=== PATIENT | female | born 1975 | race Caucasian/White ===

== ENCOUNTER 2017-09-19 01:46 | Emergency (ER) | payer MEDICAID ==
[~2017-09-19] VITALS: Ht 170.2 cm; Wt 73.5 kg
[~2017-09-19 01:46] MED LIST: ACET500C5 PO; IBUP-727 PO; MECL25TA2 PO; NAPR-260 PO; ZOF8 PO
[2017-09-19 01:49] VITALS: Ht 170.2 cm; Wt 73.5 kg
[2017-09-19] MEDS ORDERED: ACETAMINOPHEN 500 MG TAB PO STA (03:44)
--- NOTE | 2017-09-19 04:01 | ERD ---
ER Documentation Chief Complaint Chief Complaint C/O STABBING TO LEFT EAR RADIATING TO HEART. +DIZZINESS HPI 42-year-old female presents here to emergency department for multiple complaints. Patient's been having these on and off numbness and tingling, sharp pains, muscle twitching all over the body. Patient started to have left ear pain that radiated to the left chest area. Patient describes the pain as sharp pain, 6/10 scale, not better or worse with anything. Patient also complains of headache throbbing pain, succession scale, not better or worse with anything. Patient denies any fever chills. Patient denies any dizzy on exertion or dizzy lying down. Patient feels and starting in her head. Patient feels twitching all over the body. ROS All systems reviewed and are negative except as per history of present illness. Medications Home Meds Active Scripts Acetaminophen* (Tylophen*) 500 Mg Capsule, 1 CAP PO Q6H Y for PAIN AND OR ELEVATED TEMP, #20 CAP Prov:SHENA GOMEZ MD 05/10/16 Ondansetron Hcl* (Zofran* ODT) 8 mg -ODT Tab.disper, 8 MG PO Q6 Y for NAUSEA AND /OR VOMITING, #10 TAB Prov:SHENA GOMEZ MD 05/10/16 Naproxen* (Naprosyn*) 500 Mg Tablet, 500 MG PO BID Y for PAIN AND/OR INFLAMMATION, #30 TAB Prov:HANSEL KAUR PA-C 05/06/16 Meclizine Hcl* (Antivert*) 25 Mg Tablet, 25 MG PO Q6H Y for DIZZINESS, #20 TAB Prov:CALEB WEI NP 04/04/16 Reported Medications Ibuprofen (Motrin) 600 Mg Tablet, PO PRN 04/29/12 Allergies Allergies: Coded Allergies: No Known Allergies (Verified Allergy, Mild, 05/10/16) PMhx/Soc Medical and Surgical Hx: pt denies Medical Hx, pt denies Surgical Hx History of Surgery: No Anesthesia Reaction: No Hx Neurological Disorder: No Hx Respiratory Disorders: No Hx Cardiac Disorders: No Hx Psychiatric Problems: No Hx Miscellaneous Medical Probl: No (GERD; Fibroids; Hyperthyroidism) Hx Alcohol Use: No Hx Substance Use: No Hx Tobacco Use: No Smoking Status: Never smoker FmHx Family History: No coronary disease, No diabetes, No other Physical Exam Vitals Vital Signs Date Time Temp Pulse Resp B/P Pulse Ox O2 Delivery O2 Flow Rate FiO2 09/19/17 01:49 97.1 83 24 147/74 99 Physical Exam GENERAL: The patient is well developed and appropriate for usual state of health, in no apparent distress. CHEST: Clear to auscultation bilaterally. There are no rales, wheezes or rhonchi. HEART: Regular rate and rhythm. No murmurs, clicks, rubs or gallops. No S3 or S4. ABDOMEN: Soft, nontender and nondistended. Good bowel sounds. No rebound or guarding. No gross peritonitis. No gross organomegaly or masses. No Quintana sign or McBurney point tenderness. BACK: No midline or flank tenderness. EXTREMITIES: Equal pulses bilaterally. There is no peripheral clubbing, cyanosis or edema. No focal swelling or erythema. Full range of motion. Grossly neurovascularly intact. NEURO: Alert and oriented. Cranial nerves 2-12 intact. Motor strength in all 4 extremities with 5/5 strength. Sensation grossly intact. Normal speech and gait. Negative Romberg sign. Negative pronator drift. SKIN: There is no apparent rash or petechia. The skin is warm and dry. HEMATOLOGIC AND LYMPHATIC: There is no evidence of excessive bruising or lymphedema. No gross cervical, axillary, or inguinal lymphadenopathy. Results 24 hrs Current Medications Medications (Trade) Dose Ordered Sig/Huber Route PRN Reason Start Time Stop Time Status Last Admin Dose Admin Acetaminophen (Tylenol Tab) 500 mg ONCE STAT PO 09/19/17 03:44 09/19/17 03:45 DC 09/19/17 03:55 Patient was given medication for pain here in emergency department, after treatment, patient verbalized feeling much better. Patient's pain is improved. EKG was done, read by me and is normal sinus rhythm at a rate of 77, normal axis , there is no ST changes or changes in the EKG that indicates any cardiac emergencies at this time. Patient's EKG was also reviewed by Dr. Dodson. Impression: no acute findings on EKG PROCEDURE: XR Chest. CLINICAL INDICATION: chest pain TECHNIQUE: Portable single view of the chest COMPARISON: 07/30/2009 FINDINGS: The cardiomediastinal silhouette appears within normal limits. The lungs are clear and no pleural effusion or significant edema is seen. No bony abnormality is seen. IMPRESSION: No definite acute pulmonary disease. RPTAT: HLBE Zahira Victoria Physician Date Time Electronically viewed and signed by Zahira Victoria Physician on 09/19/2017 04 :17 LE/ CC: ELICEO THIBODEAUX NP CT scan of the brain without contrast was read by Dr. Victoria: Findings: The ventricles and cisterns are normal for age. There is no evidence for territorial infarction or intracranial hemorrhage. No mass or fluid collection is seen. The visualized paranasal sinuses and mastoids are clear. Impression: No definite acute intracranial abnormality. Procedures/MDM Medical Decision Making: Patient symptoms may be consistent with anxiety, neck pain most likely from neck strain, had it most likely is from tension headache. Nonspecific at this time. There is low suspicion for cardiopulmonary emergencies at this time. Patient has low risk factors. EKG is normal, there is no changes in the EKG that indicates cardiac emergencies. Chest X-ray does not show cardiopulmonary emergencies at this time. There is low suspicion for aortic aneurysm, myocardial infarction, pneumothorax, pleural effusion, pulmonary embolism, or any other cardiopulmonary emergencies at this time. Patient was given a prescription for Flexeril for muscle spasms, ibuprofen for ioqz-hz-kuntrocx pain, [place] for severe pain. Patient was advised to follow with primary care doctor in 1-2 days for reevaluation of symptoms. Patient was advised to return to emergency department for any worsening symptoms. Dispostion: Home. Stable Disclaimer: Inadvertent spelling and grammatical errors are likely due to EHR/ dictation software use and do not reflect on the overall quality of patient care. Also, please note that the electronic time recorded on this note does not necessarily reflect the actual time of the patient encounter. Departure Diagnosis: Primary Impression: Headache Headache type: tension-type Headache chronicity pattern: unspecified pattern Intractability: not intractable Qualified Code: G44.209 - Tension- type headache, not intractable, unspecified chronicity pattern Additional Impressions: Atypical chest pain Neck strain Encounter type: initial encounter Qualified Code: S16.1XXA - Strain of neck muscle, initial encounter Condition: Stable Patient Instructions: Chest Pain, Uncertain Cause, Neck Pain, No Trauma, Self- Care for Headaches ELICEO THIBODEAUX NP Sep 19, 2017 04:01
--- NOTE | 2017-09-19 04:17 | RADRPT ---
PROCEDURE: XR Chest. CLINICAL INDICATION: chest pain TECHNIQUE: Portable single view of the chest COMPARISON: 07/30/2009 FINDINGS: The cardiomediastinal silhouette appears within normal limits. The lungs are clear and no pleural e ffusion or significant edema is seen. No bony abnormality is seen. IMPRESSION: No definite acute pulmonary disease. RPTAT: HLBE Zahira Victoria Physician Date Time Electronically viewed and signed by Zahira Victoria Physician on 09/19/2017 04:17 PRISCILA/
[2017-09-19] MEDS ORDERED: CYCL-319 PO (05:54)
[2017-09-19] MEDS ORDERED: HYDR-906 PO (05:54)
[2017-09-19] MEDS ORDERED: IBUP400T22 PO (05:54)
[2017-09-19 05:56] VITALS: BP 119/62; PULSE 66; RESP 18; TEMP 98.3
--- NOTE | 2017-09-19 06:57 | RADRPT ---
PROCEDURE: CT Brain without contrast. CLINICAL INDICATION: Headache TECHNIQUE: Axial images from the skull base through the vertex without IV contrast. Multiplanar r eformatted images were made. Images were reviewed on a PACS workstation. The CTDIvol is 45.01 mGy and the DLP is 720.23 mGycm. One or more of the following dose reduction techniques were used: auto mated exposure control, adjustment of the mA and/or kV according to patient size, or use of iterativ e reconstruction technique. DICOM images are available. COMPARISON: 05/10/2016 FINDINGS: The ventricles and cisterns are normal for age. There is no evidence for territorial infarction or intracranial hemorrhage. No mass or midline shift is seen. No extra-axial fluid collection is seen . The visualized paranasal sinuses and mastoids are clear.. IMPRESSION: No definite acute intracranial abnormality. RPTAT: HLBE Physician Nevin Date Time Electronically viewed and signed by Physician Nevin on 09/19/2017 05:39 LE/
== END 2017-09-19 05:57 | disposition home or self-care (01) ==
LOC: FTE 01:46
DX: G44.209 Tension-type headache, unspecified, not intractable (principal); R07.89 Other chest pain; S16.1XXA Strain of muscle, fascia and tendon at neck level, initial encounter; X58.XXXA Exposure to other specified factors, initial encounter; Y92.9 Unspecified place or not applicable
CPT/HCPCS: 70450; 71010; 93005; Z7502; Z7610

== ENCOUNTER 2017-09-24 23:01 | Emergency (ER) | payer MEDICAID ==
[~2017-09-24] VITALS: Ht 170.2 cm; Wt 73.3 kg
[~2017-09-24 23:01] MED LIST changes: +CYCL-319 PO; +HYDR-906 PO; +IBUP400T22 PO
[2017-09-24 23:09] VITALS: Ht 170.2 cm; Wt 73.3 kg
[2017-09-24] MEDS ORDERED: SOD CHLORIDE 0.9% 1,000 ML IV STA (23:40)
--- NOTE | 2017-09-24 23:56 | ERD ---
ER Documentation Chief Complaint Chief Complaint dizziness,nausea,belly/back pains x 2 wks; hx anemia&uterine fibroids HPI 42-year-old female presents here to emergency department for lightheadedness dizziness that started the last 2 days, patient has history of uterine fibroids , has been having pelvic pain because of her fibers for the last 2 weeks that radiates to the back. Patient describes the pain as cramping pain, succession scale, accompanied with worsening bleeding the last 2 days. Patient started to have her menstruation 2 days ago, states that she has been soaking multiple pads. Patient felt very weak and lightheaded. Patient is complaining of left upper quadrant abdominal pain and left-sided chest pain radiating to the left back that started 2 days ago together with the bleeding. Patient describes the pain as sharp pain, succession scale, not better or worse with anything. ROS All systems reviewed and are negative except as per history of present illness. Medications Home Meds Active Scripts Cyclobenzaprine Hcl* (Cyclobenzaprine Hcl*) 10 Mg Tablet, 10 MG PO TID, #15 TAB Prov:ELICEO THIBODEAUX NP 09/19/17 Hydrocodone/Acetaminophen ([place] 5-325 Tablet) 1 Each Tablet, 1 TAB PO Q6H Y for SEVERE PAIN LEVEL 7-10, #20 TAB Prov:ELICEO THIBODEAUX NP 09/19/17 Ibuprofen* (Motrin*) 400 Mg Tab, 400 MG PO Q6H Y for PAIN AND OR ELEVATED TEMP, #30 TAB Prov:ELICEO THIBODEAUX NP 09/19/17 Acetaminophen* (Tylophen*) 500 Mg Capsule, 1 CAP PO Q6H Y for PAIN AND OR ELEVATED TEMP, #20 CAP Prov:SHENA GOMEZ MD 05/10/16 Ondansetron Hcl* (Zofran* ODT) 8 mg -ODT Tab.disper, 8 MG PO Q6 Y for NAUSEA AND /OR VOMITING, #10 TAB Prov:SHENA GOMEZ MD 05/10/16 Naproxen* (Naprosyn*) 500 Mg Tablet, 500 MG PO BID Y for PAIN AND/OR INFLAMMATION, #30 TAB Prov:HANSEL KAUR PA-C 05/06/16 Meclizine Hcl* (Antivert*) 25 Mg Tablet, 25 MG PO Q6H Y for DIZZINESS, #20 TAB Prov:CALEB WEI [employer] SUPER[employer] 04/04/16 Reported Medications Ibuprofen (Motrin) 600 Mg Tablet, PO PRN 04/29/12 Allergies Allergies: Coded Allergies: No Known Allergies (Verified Allergy, Mild, 05/10/16) PMhx/Soc Medical and Surgical Hx: pt denies Surgical Hx History of Surgery: No Anesthesia Reaction: No Hx Neurological Disorder: No Hx Respiratory Disorders: No Hx Cardiac Disorders: No Hx Psychiatric Problems: No Hx Miscellaneous Medical Probl: No (GERD; Fibroids; Hyperthyroidism) Hx Alcohol Use: No Hx Substance Use: No Hx Tobacco Use: No Smoking Status: Never smoker FmHx Family History: No coronary disease, No diabetes, No other Physical Exam Vitals Vital Signs Date Time Temp Pulse Resp B/P Pulse Ox O2 Delivery O2 Flow Rate FiO2 09/24/17 23:09 99.0 71 20 127/62 100 Physical Exam GENERAL: The patient is well developed and appropriate for usual state of health, in no apparent distress. CHEST: Clear to auscultation bilaterally. There are no rales, wheezes or rhonchi. HEART: Regular rate and rhythm. No murmurs, clicks, rubs or gallops. No S3 or S4. ABDOMEN: Soft, nontender and nondistended. Good bowel sounds. No rebound or guarding. No gross peritonitis. No gross organomegaly or masses. No Quintana sign or McBurney point tenderness. BACK: No midline or flank tenderness. EXTREMITIES: Equal pulses bilaterally. There is no peripheral clubbing, cyanosis or edema. No focal swelling or erythema. Full range of motion. Grossly neurovascularly intact. NEURO: Alert and oriented. Cranial nerves 2-12 intact. Motor strength in all 4 extremities with 5/5 strength. Sensation grossly intact. Normal speech and gait. SKIN: There is no apparent rash or petechia. The skin is warm and dry. HEMATOLOGIC AND LYMPHATIC: There is no evidence of excessive bruising or lymphedema. No gross cervical, axillary, or inguinal lymphadenopathy. Result Diagram: 09/24/17 0000 09/24/17 0000 Results 24 hrs Laboratory Tests Test 09/24/17 00:00 09/25/17 00:33 White Blood Count 6.110^3/ul Red Blood Count 4.2610^6/ul Hemoglobin 11.0g/dl Hematocrit 34.9% Mean Corpuscular Volume 81.9fl Mean Corpuscular Hemoglobin 25.8pg Mean Corpuscular Hemoglobin Concent 31.5g/dl Red Cell Distribution Width 20.2% Platelet Count 89397^3/UL Mean Platelet Volume 11.5fl Neutrophils % 48.8% Lymphocytes % 41.5% Monocytes % 7.6% Eosinophils % 0.8% Basophils % 1.0% Nucleated Red Blood Cells % 0.0/100WBC Neutrophils # 3.010^3/ul Lymphocytes # 2.510^3/ul Monocytes # 0.510^3/ul Eosinophils # 0.110^3/ul Basophils # 0.110^3/ul Nucleated Red Blood Cells # 0.010^3/ul Sodium Level 142mmol/L Potassium Level 3.4mmol/L Chloride Level 101mmol/L Carbon Dioxide Level 31mmol/L Anion Gap 13 Blood Urea Nitrogen 12mg/dl Creatinine 0.68mg/dl Glucose Level 85mg/dl Calcium Level 9.9mg/dl Total Bilirubin 0.2mg/dl Direct Bilirubin 0.00mg/dl Indirect Bilirubin 0.2mg/dl Aspartate Amino Transf (AST/SGOT) 32IU/L Alanine Aminotransferase (ALT/SGPT) 40IU/L Alkaline Phosphatase 58IU/L Troponin I < 0.012ng/ml Total Protein 7.4g/dl Albumin 4.2g/dl Globulin 3.20g/dl Albumin/Globulin Ratio 1.31 Lipase 144U/L Urine Color STRAW Urine Clarity CLEAR Urine pH 6.0 Urine Specific [place] 1.005 Urine Ketones NEGATIVEmg/dL Urine Nitrite NEGATIVEmg/dL Urine Bilirubin NEGATIVEmg/dL Urine Urobilinogen NEGATIVEmg/dL Urine Leukocyte Esterase NEGATIVELeu/ul Urine Microscopic RBC 2/HPF Urine Microscopic WBC 0/HPF Urine Hemoglobin 3+mg/dL Urine Glucose NEGATIVEmg/dL Urine Total Protein NEGATIVEmg/dl Current Medications Medications (Trade) Dose Ordered Sig/Hubre Route PRN Reason Start Time Stop Time Status Last Admin Dose Admin Sodium Chloride (NS) 1,000 ml @ 1,000 mls/hr Q1H STAT IV 09/24/17 23:40 09/25/17 00:39 DC 09/25/17 00:20 Normal saline IV bolus was given here in emergency department for rehydration, patient tolerated IV fluids. EKG was done, read by me and is normal sinus rhythm at a rate of _62, normal axis, there is no ST changes or changes in the EKG that indicates any cardiac emergencies at this time. Patient's EKG was also reviewed by Dr. Dodson. Impression: no acute findings on EKG PROCEDURE: CT Abdomen and pelvis without contrast. CLINICAL INDICATION: Abdominal pain. TECHNIQUE: CT scan of the abdomen and pelvis was performed on a multi- detector high-resolution CT scanner. Contiguous axial images were obtained from the lung bases to the ischial tuberosities without intravenous contrast. Coronal and sagittal reformatted images were also obtained. Images were reviewed on the PACS workstation. DICOM images are available. One or more of the following dose reduction techniques were used: - Automated exposure control. - Adjustment of the mA and/or kV according to patient size. - Use of iterative reconstruction technique. Exam CTD/vol = 10.38 mGy. Total exam DLP = 586.18 mGy-cm. COMPARISON: 07/24/2013. FINDINGS: Evaluation of the lung bases demonstrates minimal bibasilar atelectasis. Abdomen: The liver is normal in size. There is no focal mass or dilatation of the biliary tree. The gallbladder is not distended. The spleen, pancreas and bilateral adrenal glands are within normal limits. Bilateral kidneys are normal in size with no contour deforming mass identified. There is no radiopaque renal or ureteral calculus identified. There is no hydronephrosis or hydroureter. There is no retroperitoneal adenopathy. The abdominal aorta is of normal caliber. There is no abnormal bowel wall thickening or distension. There is no bowel obstruction or free air. A normal appendix is identified. There is no diverticulosis or diverticulitis. There is no ascites. Pelvis: The bladder is unremarkable. The uterus is enlarged with multiple fibroids. There is no significant pelvic adenopathy or free fluid. Evaluation of the osseous structures demonstrates no suspicious lytic or blastic lesion. IMPRESSION: Enlarged uterus with multiple fibroids. Otherwise no acute abnormality identified within the abdomen and pelvis. .Darinel Chase MD, Date Time Electronically viewed and signed by .Darinel Chase MD, MD on 09/25/2017 01:58 .T/ CC: ELICEO THIBODEAUX [employer] SUPER[employer] PROCEDURE: XR Chest. CLINICAL INDICATION: Chest pain. Abdominal pain TECHNIQUE: Portable AP semi erect view of the chest was obtained. COMPARISON: 09/19/2017 FINDINGS: The cardiomediastinal silhouette is within normal limits. The lungs are clear. There is no evidence for pleural effusion, pneumothorax or pulmonary vascular congestion. The osseous structures are intact with no evidence for acute abnormality. No free air is demonstrated below the diaphragm. RPTAT:HJJR IMPRESSION: No evidence for acute intrathoracic pathology. Aureliano Doyle Physician Date Time Electronically viewed and signed by Physician Ventura on 09/25/2017 00:10 JR/ CC: ELICEO THIBODEAUX. [employer] SUPERVISOR Procedures/MDM Medical Decision Making: Symptoms of abdominal pain nonspecific at this time, possibly consistent with gastritis since she is having epigastric pain. Patient dizziness nonspecific, hemoglobin is stable at this time, patient has multiple uterine fibroids causing the heavy vaginal bleeding. Blood transfusion not necessary at this time. There is low suspicion for abdominal emergencies at this time. Patients abdominal exam is normal at this time. Patients radiology exam does not show any abdominal emergencies at this time. There is low suspicion for appendicitis, cholecystitis, abdominal aortic aneurysms or peritonitis at this time. There is low suspicion for sepsis. Patient appears well and is hemodynamically stable. Disposition: Home. Condition: Stable Prescription for ferrous sulfate, Colace, omeprazole, Mylanta Instructions: Patient is advised to take medications as prescribed. Patient is advised to rest, increase fluid intake and do brat diet for next 1-2 days and progress as tolerated. Patient is advised that if symptoms are worse, severe abdominal pain, uncontrolled vomiting, high fever, severe flank pain, worst signs and symptoms, to return to the emergency department immediately. Otherwise, patient can follow up with primary care doctor in 5-7 days. Disclaimer: Inadvertent spelling and grammatical errors are likely due to EHR/ dictation software use and do not reflect on the overall quality of patient care. Also, please note that the electronic time recorded on this note does not necessarily reflect the actual time of the patient encounter. Departure Diagnosis: Primary Impression: Vaginal bleeding Additional Impressions: Uterine fibroid Uterine leiomyoma location: unspecified location Qualified Code: D25.9 - Uterine leiomyoma, unspecified location Abdominal pain Abdominal location: lower abdomen, unspecified Qualified Code: R10.30 - Lower abdominal pain Condition: Stable Patient Instructions: Abdominal Pain, Dysfunctional Uterine Bleeding, Uterine Fibroids Additional Instructions: Patient is advised to take medications as prescribed. Patient is advised to rest , increase fluid intake and do brat diet for next 1-2 days and progress as tolerated. Patient is advised that if symptoms are worse, severe abdominal pain , uncontrolled vomiting, high fever, severe flank pain, worst signs and symptoms , to return to the emergency department immediately. Otherwise, patient can follow up with primary care doctor in 5-7 days. ELICEO THIBODEAUX NP Sep 24, 2017 23:56
--- NOTE | 2017-09-25 00:11 | RADRPT ---
PROCEDURE: XR Chest. CLINICAL INDICATION: Chest pain. Abdominal pain TECHNIQUE: Portable AP semi erect view of the chest was obtained. COMPARISON: 09/19/2017 FINDINGS: The cardiomediastinal silhouette is within normal limits. The lungs are clear. There is no evidenc e for pleural effusion, pneumothorax or pulmonary vascular congestion. The osseous structures are i ntact with no evidence for acute abnormality. No free air is demonstrated below the diaphragm. RPTAT:HJJR IMPRESSION: No evidence for acute intrathoracic pathology. Physician Ventura Date Time Electronically viewed and signed by Physician Ventura on 09/25/2017 00:10 JR/
[2017-09-25 00:32] LABS: BASOPHIL # 0.1 10^3/ul (0.0-0.1); EOSINOPHILS # 0.1 10^3/ul (0.0-0.5); EOSINOPHILS % 0.8 % (0.0-7.0); HEMATOCRIT 34.9 % (37.0-47.0); LYMPHOCYTES # 2.5 10^3/ul (0.8-2.9); LYMPHOCYTES % 41.5 % (15.0-51.0); MEAN CORPUSCULAR HEMOGLOBIN 25.8 pg (29.0-33.0); MEAN CORPUSCULAR HGB CONC 31.5 g/dl (32.0-37.0); MEAN CORPUSCULAR VOLUME 81.9 fl (82.0-101.0); MEAN PLATELET VOLUME 11.5 fl (7.4-10.4); MONOCYTE # 0.5 10^3/ul (0.3-0.9); MONOCYTES % 7.6 % (0.0-11.0); NEUTROPHILS % 48.8 % (39.0-77.0); PLATELET COUNT 262 10^3/UL (140-415); RED BLOOD COUNT 4.26 10^6/ul (4.20-5.40); RED CELL DISTRIBUTION WIDTH 20.2 % (11.5-14.5); WHITE BLOOD COUNT 6.1 10^3/ul (4.8-10.8)
[2017-09-25 00:50] LABS: ALBUMIN 4.2 g/dl (3.3-4.9); ALBUMIN/GLOBULIN RATIO 1.31; BILIRUBIN,INDIRECT 0.2 mg/dl (0-1.1); BILIRUBIN,TOTAL 0.2 mg/dl (0.2-1.3); CALCIUM 9.9 mg/dl (8.4-10.2); CREATININE 0.68 mg/dl (0.44-1.00); POTASSIUM 3.4 mmol/L (3.5-5.1); TOTAL PROTEIN 7.4 g/dl (6.1-8.1)
[2017-09-25 01:51] LABS: ADD UMIC YES; UR ASCORBIC ACID NEGATIVE (NEGATIVE); UR BILIRUBIN (Dip) NEGATIVE (NEGATIVE); UR BLOOD (Dip) 3+ mg/dL (NEGATIVE); UR CLARITY CLEAR (CLEAR); UR COLOR STRAW (YELLOW); UR GLUCOSE (Dip) NEGATIVE (NEGATIVE); UR KETONES (Dip) NEGATIVE (NEGATIVE); UR LEUKOCYTE ESTERASE (Dip) NEGATIVE Leu/ul (NEGATIVE); UR NITRITE (Dip) NEGATIVE (NEGATIVE); UR RBC 2 /HPF (0-5); UR SPECIFIC GRAVITY (Dip) 1.005 (1.003-1.030); UR TOTAL PROTEIN (Dip) NEGATIVE (NEGATIVE); UR UROBILINOGEN (Dip) NEGATIVE (NEGATIVE)
--- NOTE | 2017-09-25 01:58 | RADRPT ---
PROCEDURE: CT Abdomen and pelvis without contrast. CLINICAL INDICATION: Abdominal pain. TECHNIQUE: CT scan of the abdomen and pelvis was performed on a multi-detector high-resolution CT scanner. Contiguous axial images were obtained from the lung bases to the ischial tuberosities wit hout intravenous contrast. Coronal and sagittal reformatted images were also obtained. Images were reviewed on the PACS workstation. DICOM images are available. One or more of the following dose reduction techniques were used: - Automated exposure control. - Adjustment of the mA and/or kV according to patient size. - Use of iterative reconstruction technique. Exam CTD/vol = 10.38 mGy. Total exam DLP = 586.18 mGy-cm. COMPARISON: 07/24/2013. FINDINGS: Evaluation of the lung bases demonstrates minimal bibasilar atelectasis. Abdomen: The liver is normal in size. There is no focal mass or dilatation of the biliary tree. T he gallbladder is not distended. The spleen, pancreas and bilateral adrenal glands are within ángel l limits. Bilateral kidneys are normal in size with no contour deforming mass identified. There is no radiopaque renal or ureteral calculus identified. There is no hydronephrosis or hydroureter. T here is no retroperitoneal adenopathy. The abdominal aorta is of normal caliber. There is no abnormal bowel wall thickening or distension. There is no bowel obstruction or free air . A normal appendix is identified. There is no diverticulosis or diverticulitis. There is no asci familia. Pelvis: The bladder is unremarkable. The uterus is enlarged with multiple fibroids. There is no s ignificant pelvic adenopathy or free fluid. Evaluation of the osseous structures demonstrates no suspicious lytic or blastic lesion. IMPRESSION: Enlarged uterus with multiple fibroids. Otherwise no acute abnormality identified within the abdomen and pelvis. .Darinel Chase MD, MD Date Time Electronically viewed and signed by .Darinel Chase MD, MD on 09/25/2017 01:58 .T/
[2017-09-25] MEDS ORDERED: DOCU-144 PO (02:25)
[2017-09-25] MEDS ORDERED: FER325 PO (02:25)
[2017-09-25] MEDS ORDERED: MAG-19 PO (02:25)
[2017-09-25] MEDS ORDERED: OMEP20CA16 PO (02:25)
[2017-09-25 02:36] VITALS: BP 131/69; PULSE 66; RESP 18; TEMP 98.1
== END 2017-09-25 02:37 | disposition home or self-care (01) ==
LOC: FTE 23:01
DX: N93.9 Abnormal uterine and vaginal bleeding, unspecified (principal); D25.9 Leiomyoma of uterus, unspecified
CPT/HCPCS: 36415; 71010; 74176; 80053; 81001; 83690; 84484; 85025; 86850; 86900; 86901; 93005; J7030; Z7502

== ENCOUNTER 2017-10-17 13:58 | Emergency (ER) | END 2017-10-17 17:28 | disposition home or self-care (01) ==

== ENCOUNTER 2017-11-20 05:24 | Emergency (ER) | END 2017-11-20 09:07 | disposition home or self-care (01) ==

== ENCOUNTER 2018-01-27 08:58 | Emergency (ER) | END 2018-01-27 12:32 | disposition home or self-care (01) ==

== ENCOUNTER 2019-08-14 17:36 | Emergency (ER) | payer MEDICAID ==
[~2019-08-14] VITALS: Ht 170.2 cm; Wt 72.5 kg
[~2019-08-14 17:36] MED LIST changes: +CEPH-443 PO; -CYCL-319 PO; +CYCL10TA7 PO; +DOCU-144 PO; +FER325 PO; +HYDR-4011 PO; -HYDR-906 PO; +IBUP-1542 PO; +IBUP-1561 PO; -IBUP400T22 PO; +MAG-19 PO; +MEDR10TA2 PO; -NAPR-260 PO; +NAPR-985 PO; +OMEP20CA17 PO; +PRED20TA PO; +TRAM50TA PO
[2019-08-14 17:44] VITALS: BP 135/76; PULSE 62; RESP 18; Ht 170.2 cm; Wt 72.5 kg
== END 2019-08-14 22:52 | disposition home or self-care (01) ==
LOC: FTE 17:36
DX: M54.32 Sciatica, left side (principal); M79.605 Pain in left leg; E03.9 Hypothyroidism, unspecified
CPT/HCPCS: 73510; 81025; Z7502